=== PATIENT | female | born 1970 | race Two or more races ===

== ENCOUNTER → 2022-06-19 | Outpatient (REF) | LOC: M LABSMTC 10:40 | PROVIDERS: ATTEND Family Medicine | DX: Z11.52 Encounter for screening for COVID-19 (principal) ==

== ENCOUNTER 2022-08-24 23:57 | Emergency (ER) | payer OTHER, SELFPAY ==
[~2022-08-24] VITALS: Ht 162.6 cm; Wt 80.2 kg
[2022-08-24 23:58] VITALS: BP 155/73
== END 2022-08-25 03:03 | disposition left against medical advice (07) ==
LOC: M ED 23:57
DX: Z53.21 Procedure and treatment not carried out due to patient leaving prior to being seen by health care provider (principal)

== ENCOUNTER 2024-05-09 18:15 | Emergency (ER) | payer SELFPAY ==
[~2024-05-09] VITALS: Ht 162.6 cm; Wt 79.9 kg
[2024-05-09 18:18] VITALS: BP 135/80; TEMP 98.6; O2SAT 98
== END 2024-05-09 20:33 | disposition left against medical advice (07) ==
LOC: M ED 18:15
DX: Z53.21 Procedure and treatment not carried out due to patient leaving prior to being seen by health care provider (principal)